=== PATIENT | female | born 1985 | race Caucasian/White ===

== ENCOUNTER 2024-05-12 09:39 | Outpatient (CLI) | payer MEDICAID, SELFPAY | END 2024-05-12 09:40 | disposition home or self-care (01) | LOC: NFLDREF 09:40 | PROVIDERS: Visit Provider Advanced Practice Midwife | DX: Z34.93 Encounter for supervision of normal pregnancy, unspecified, third trimester (principal); O09.523 Supervision of elderly multigravida, third trimester; Z3A.34 34 weeks gestation of pregnancy | CPT/HCPCS: 86787 ==

== ENCOUNTER 2024-05-26 12:41 | Outpatient (CLI) | payer MEDICAID, SELFPAY ==
[2024-05-27 15:35] LABS: Strep B DNA Probe Negative (Negative)
[2024-05-27 15:39] LABS: Strep B Susceptibility Needed? No
== END 2024-05-26 12:42 | disposition home or self-care (01) ==
LOC: NFLDREF 12:42
PROVIDERS: Visit Provider Advanced Practice Midwife
DX: Z34.93 Encounter for supervision of normal pregnancy, unspecified, third trimester (principal); O09.523 Supervision of elderly multigravida, third trimester; Z3A.36 36 weeks gestation of pregnancy
CPT/HCPCS: 87081; 87653

== ENCOUNTER 2024-06-01 08:18 | Outpatient (CLI) | payer MEDICAID, SELFPAY ==
[2024-06-01 08:36] VITALS: RESP 18; TEMP 36.7
[2024-06-01 08:41] VITALS: BP 101/64; PULSE 77
[2024-06-01] MEDS: TERBUTALINE 1 MG/ML INJ 0.25 MG SUBCUT (09:44)
--- NOTE | 2024-06-01 11:17 | PC.OBNST ---
NST Note NST Note Start: 06/01/24 08:39 Freq: ONCE Status: Active Protocol: Document 06/01/24 11:13 CUDDYH (Rec: 06/01/24 11:17 CUDDYH [id number]) NST Note 1 Para (# of births) 0 EDC 06/21/24 Gestational Age In Weeks & Days 37 Weeks & 1 Days Other Complaints Scheduled ECV Reactive Yes Appropriate for Gestational Age Yes RN Ricardo Rahman RN Date 06/01/24 Reactive Yes Appropriate for Gestational Age Yes OSVALDO Mcclellan RN Date 06/01/24 OB NST charge Yes Complete NST Note via Write Note Yes The provider's electronic signature indicates the NST is reactive/appropriate for gestational age. *Note to provider: If an addendum is required, open the patient's chart and click on the note under the Nurse/Allied Health tab.
--- NOTE | 2024-06-01 13:34 | PM.OBCN1 ---
OB - CN: HPI Date of Consult Date Seen: 06/01/24 Patient: [facility] Patient Consult date: 06/01/24 Requesting Physician: Freight Manager service Primary Care Provider: Not a Local Provider Consult Narrative Narrative: The patient is a 38 year old G 1 P 0 woman at 37 weeks, 1 day gestation who presents to Center today for attempted external cephalic version. She was found to have fetus in breech presentation at her last clinic visit. Overall, she has an otherwise uncomplicated . She is Rh positive. History History 1 Elective abortions Para 0 Spontaneous abortions Hx # Term Pregnancies Ectopic pregnancies Hx # Pregnancies Multiple births Number of Living Children 0 PFSH PFSH Family History Grandmother Heart disease Lung cancer Grandfather Diabetes Social History What is your current living situation?: I presently have a place to live Problems where you live: no known problems In the past 12 months, utilities in danger of being shut off: no In past 12 months, lack of transportation kept you from medical appts, meetings, work, or getting things needed for daily living: no In the past 12 mos, have been you worried that your food would run out before you had money to buy more?: never true In the past 12 mos, the food you bought just didn't last and you didn't have money to buy more?: never true Smoking Status: Never smoker How often does anyone, including family, friends and others, physically hurt you: never How often does anyone, including family, friends and others, insult or talk down to you: never How often does anyone, including family, friends and others, threaten you with harm: never How often does anyone, including family, friends and others, scream or curse at you: never Little interest or pleasure in doing things: not at all Feeling down, depressed, or hopeless: not at all Meds Home Medications and Allergies Home Medications ?Medication ?Instructions ?Recorded ?Confirmed ?Type docosahexaenoic acid 200 mg mg PO 04/28/24 05/26/24 History capsule ( DHA) Allergies Allergy/AdvReac Type Severity Reaction Status Date / Time No Known Drug Allergies Allergy Verified 05/26/24 08:29 OB - H&P: Exam Physical Exam: Vital signs: Temp Pulse Resp BP 98.1 F 77 18 101/64 06/01/24 08:36 06/01/24 08:41 06/01/24 08:36 06/01/24 08:41 Narrative: General: Pleasant, no acute distress Abdomen: Soft, nontender, gravid, breech presentation, confirmed on ultrasound. Bedside ultrasound performed: Fetus in michelle breech presentation OB - CN: A/P Assessment and Plan (1) Breech presentation: Status: Acute Plan Procedure note: External cephalic version We discussed risks of procedure, including discomfort, failure, rupture of membranes, disruption of placenta necessitating emergent delivery. Consent form reviewed with and signed by patient. Tianna was given a single dose of terbutaline 10 min prior to procedure. Her abdomen was coated in ultrasound gel. The infant's breech was elevated out of the pelvis, and we instituted a forward roll of the fetus on the 1st attempt. Ultrasound confirmed cephalic lie at end of procedure. Patient tolerated procedure well. Nonstress test before and after procedure was reactive and reassuring.
== END 2024-06-01 11:13 | disposition home or self-care (01) ==
LOC: OB CLI 08:21 → OB 08:22
PROVIDERS: Visit Provider Obstetrics & Gynecology
DX: O32.1XX0 Maternal care for breech presentation, not applicable or unspecified (principal); Z3A.37 37 weeks gestation of pregnancy
CPT/HCPCS: 59025; 59412; G0463; J3105

== ENCOUNTER 2024-06-17 13:00 | Inpatient (IN) | payer MEDICAID, SELFPAY ==
[2024-06-17] VITALS (43 sets, daily range): BP systolic 99–116; BP diastolic 52–73; PULSE 53–79; RESP 16; TEMP 36.4–37.2; O2SAT 16–100; BMI 25.0
[2024-06-17 11:01] LABS: Amnisure Rom* POSITIVE
--- NOTE | 2024-06-17 11:19 | P.LDBA_ITS ---
Subjective History of Present Illness Date Seen: 06/17/24 Narrative: Patient is being admitted to Labor and Delivery for []. She is a 38 year old at weeks gestation. Her full history and physical was dictated by [] on []. Please see this for details. [] Specific Issues/Plans G 1 P 0 Partner Amos Transfer of care from [facility] at 32 weeks # Breech at 36.2 weeks Successful external cephalic version 06/01/24 = 37 1/7 weeks # Advanced maternal age NIPT: low risk Daily baby aspirin Level 2 ultrasound completed # Rabies vaccine series completed during due to possible exposure to rabies. # Anemia recommended iron supplement at 34 weeks Tdap: 04/28 RSV: 04/28 Flu: 06/07/2024 Covid: 06/07/2024 Completed, not up-to-date. Recommended. Labs: Blood type O positive, antibody screen negative, hemoglobin 11.7, platelets 212, rubella 2.26 immune, TP PA nonreactive, hepatitis-B antigen negative, HIV negative, Chlamydia gonorrhea both negative, urine culture less than 10,000 mixed bacteria, hepatitis C negative, hemoglobin A1c 5.0 Varicella: IMMUNE, done at [facility], Pap:04/10/24: NILM NIPT: Low risk, male 1 hour glucose: 101 Ultrasound on 11/17/2023 shows intrauterine at 9 weeks 2 days. Level 2 anatomy scan on 02/17/2024 shows intrauterine 22 weeks 1 day. No anomalies evident. No markers for aneuploidy seen. biometry is consistent with gestational age. Amniotic fluid volume appears normal. Normal cervical length. No evidence of placenta previa. OB Result Labs Blood Type: O (+) positive Rubella: immune RPR/VDLR: nonreactive GBS Status: negative HBsAG: negative OB Exam Physical Exam Vital signs: Temp Pulse Resp BP Pulse Ox 97.5 F L 70 16 99/68 98 06/17/24 10:50 06/17/24 10:28 06/17/24 10:50 06/17/24 10:28 06/17/24 11:19 Narrative: Vitals Reviewed Constitutional:? Alert and oriented x3 HEENT:? Normocephalic, atraumatic Neck:? Supple Lungs:? Clear to auscultation bilaterally Heart:? Regular rate and rhythm, no murmur, rub or gallop Abdomen:? Soft, nontender, and gravid. Vertex by Jun's, confirmed with cervical exam. Extremities:? No edema or erythema Cervix: [] cm/[]%/[] station/[vertex] NST: [] bpm/[] variability/[]accelerations/[]decelerations/[]contractions
--- NOTE | 2024-06-17 11:54 | PM.OBLDTN ---
OB - Triage/Final Diagnosis Visit Information Date of evaluation: 06/17/24 Narrative: The patient is a 38 year old 1 para 0 at 39w3d weeks gestation by LMP confirmed by first tri US, who presents with leaking of fluid since yesterday morning. She has no fever or other complaints. She has had continued trickles of clear fluid. movement has been good. No contractions felt. No vaginal bleeding noted. Evaluation Laboratory results: Laboratory Tests 06/17/24 Range/Units 10:40 Membrane Rupture POSITIVE Vital signs: Vital Signs - 24 hr 06/17/24 10:28 06/17/24 10:29 06/17/24 10:34 Temperature Pulse Rate 70 Respiratory Rate Blood Pressure 99/68 Pulse Oximetry 98 99 06/17/24 10:39 06/17/24 10:44 06/17/24 10:49 Temperature Pulse Rate Respiratory Rate Blood Pressure Pulse Oximetry 98 98 97 06/17/24 10:50 06/17/24 10:54 06/17/24 10:59 Temperature 97.5 F L Pulse Rate Respiratory Rate 16 Blood Pressure Pulse Oximetry 97 97 06/17/24 11:04 06/17/24 11:09 06/17/24 11:14 Temperature Pulse Rate Respiratory Rate Blood Pressure Pulse Oximetry 98 97 97 06/17/24 11:19 06/17/24 11:24 06/17/24 11:29 Temperature Pulse Rate Respiratory Rate Blood Pressure Pulse Oximetry 98 100 100 06/17/24 11:34 06/17/24 11:39 06/17/24 11:44 Temperature Pulse Rate Respiratory Rate Blood Pressure Pulse Oximetry 99 99 99 06/17/24 11:49 06/17/24 11:54 Temperature Pulse Rate Respiratory Rate Blood Pressure Pulse Oximetry 99 97 Comments: Vitals Reviewed Constitutional:? Alert and oriented x3 HEENT:? Normocephalic, atraumatic Neck:? Supple Lungs:? Clear to auscultation bilaterally Heart:? Regular rate and rhythm, no murmur, rub or gallop Abdomen:? Soft, nontender, and gravid. Vertex by Jun's, confirmed with cervical exam. Extremities:? No edema or erythema Cervix: FT/90%/-3 station/vertex, Palpable fluid above cervix, vagina noted to be dry with no evidence of obvious amniotic fluid on the glove. NST: 118 bpm/moderate variability/accelerations present/decelerations absent/contractions present, palpating mild, pt not feeling them. Final Diagnosis (1) Advanced maternal age (AMA) in : Status: Acute (2) : Status: Acute Problem details: While amnisure is positive, false positive rate of 7-30% reviewed with patient since vaginal exam did not give any correlating info. Reviewed risk of infection and recommendation to induce labor since >24h since possible rupture, but also don't want to intervene if not ruptured. Reviewed option to repeat amnisure, do ferning test or go ahead with IOL assuming accurate test result since >39w. Pt elected to repeat amnisure and eat some lunch while waiting for the results. That way she can feel more reassured about the decisions she is making. H&P completed. Will update after amnisure is back.
[2024-06-17 12:44] LABS: Amnisure Rom* POSITIVE
--- NOTE | 2024-06-17 12:48 | W.PM.LDBA ---
Subjective History of Present Illness Date Seen: 06/17/24 Narrative: Patient is being admitted to Labor and Delivery for PROM at term. She is a 38 year old at weeks gestation. Her full history and physical was dictated by Joe SAHU today. see below. Specific Issues/Plans G 1 P 0 Partner Amos Transfer of care from [facility] at 32 weeks H&P completed by Joe SAHU GEOSPATIAL IMAGE ANALYST 06/17/2024 # Breech at 36.2 weeks Successful external cephalic version 06/01/24 = 37 1/7 weeks # Advanced maternal age NIPT: low risk Daily baby aspirin Level 2 ultrasound completed # Rabies vaccine series completed during due to possible exposure to rabies. # Anemia recommended iron supplement at 34 weeks Tdap: 04/28 RSV: 04/28 Flu: 06/07/2024 Covid: 06/07/2024 Completed, not up-to-date. Recommended. Labs: Blood type O positive, antibody screen negative, hemoglobin 11.7, platelets 212, rubella 2.26 immune, TP PA nonreactive, hepatitis-B antigen negative, HIV negative, Chlamydia gonorrhea both negative, urine culture less than 10,000 mixed bacteria, hepatitis C negative, hemoglobin A1c 5.0 Varicella: IMMUNE, done at [facility], Pap:04/10/24: NILM NIPT: Low risk, male 1 hour glucose: 101 Ultrasound on 11/17/2023 shows intrauterine at 9 weeks 2 days. Level 2 anatomy scan on 02/17/2024 shows intrauterine 22 weeks 1 day. No anomalies evident. No markers for aneuploidy seen. biometry is consistent with gestational age. Amniotic fluid volume appears normal. Normal cervical length. No evidence of placenta previa. OB - Problem Based A/P Additional Plan (1) Advanced maternal age (AMA) in : Status: Acute (2) : Problem details: While amnisure is positive, false positive rate of 7-30% reviewed with patient since vaginal exam did not give any correlating info. Reviewed risk of infection and recommendation to induce labor since >24h since possible rupture, but also don't want to intervene if not ruptured. Reviewed option to repeat amnisure, do ferning test or go ahead with IOL assuming accurate test result since >39w. Pt elected to repeat amnisure and eat some lunch while waiting for the results. That way she can feel more reassured about the decisions she is making. H&P completed. Status: Acute (3) PROM (premature rupture of membranes): Status: Acute Plan ASSESSMENT:?? 38 at 39 3/7 weeks gestation?? complicated by:?rabies with teratment in , anemia, AMA? Labor type: Induced labor??admit Category 1 FHR pattern.??? Labor complicated by: PROM at term?? GBS negative? ?? PLAN:?? 1. Routine intrapartum cares as ordered. 2. Monitoring per policy, continuous on pitocin, initiate pit per protocol 3. Planning unmedicated . May desire water . Consent signed. Hep C negative. Candidate for analgesia of choice.??? 4. Patient encouraged to reposition and ambulate to promote physiologic labor and .?? 5. Anticipate ? Delivery/Labor/Induction Plan Plan: induction Induction method: per pitocin protocol OB Result Labs Blood Type: O (+) positive Rubella: immune RPR/VDLR: nonreactive GBS Status: negative HBsAG: negative OB Exam Physical Exam Vital signs: Temp Pulse Resp BP Pulse Ox 97.5 F L 70 16 99/68 100 06/17/24 10:50 06/17/24 10:28 06/17/24 10:50 06/17/24 10:28 06/17/24 12:29 Narrative: See exam documented in triage note. Amnisure +x 2
[2024-06-17 15:55] LABS: Basophils Percent Auto 0.1 % (0.0-3.0); Eosinophils Percent Auto 0.4 % (0.0-7.0); Hematocrit 33.7 % (33.0-51.0); Hemoglobin* 11.3 gm/dL (12.0-16.0); Immature Granulocytes Pct Auto 0.6 %; Lymphocytes Percent Auto 14.4 % (20-44); Mean Corpuscular HGB Conc 34 gm/dL (32-36); Mean Corpuscular Hemoglobin 32 pg (26-34); Mean Corpuscular Volume 95 fL (80-100); Monocytes Percent Auto 6.1 % (0.0-11.0); Neutrophils Percent Auto 78.4 % (42.0-72.0); Platelet Count* 187 K/uL (140-440); RDW Coefficient of Variation % 12.7 % (11.5-15.5); Red Blood Count 3.54 m/uL (4.00-5.20); White Blood Count* 11.72 K/uL (4.50-11.00)
[2024-06-17 15:59] LABS: Slide Review Reflex No
[2024-06-17] MEDS: LACTATED RINGERS 1000 ML 1,000 ML 30 ML IV (16:03)
[2024-06-17] MEDS: OXYTOCIN 30 unit/500 ML in NS 30 UNIT/500 ML BAG IVPB (16:07)
[2024-06-18] VITALS (39 sets, daily range): BP systolic 92–118; BP diastolic 27–71; PULSE 50–85; RESP 16–20; TEMP 36.4–37; O2SAT 97–99
[2024-06-18] MEDS: miSOPROStoL 25 MCG/0.25 TABLET PO ×4 (00:13→06:33)
--- NOTE | 2024-06-18 11:00 | P.OBPN_ITS ---
Subjective Date Seen: 06/18/24 Narrative: Tianna received her 4th dose of oral Cytotec around 0630 this am. Since then she has continued to feel only cramping with some of the contractions that are tracing. She describes it as low in her abdomen and some in her back. She was able to sleep over night and feels well rested. She reported a large gush of clear fluid around 0100 this morning but has had only a scant amount since then. She does however endorse regular leaking of fluid since SROM. This morning we discussed options for how to proceed with her labor after SROM. We discussed expectant management but that was not recommended given her prolonged SROM. We discussed giving 1-2 additional doses of Cytotec but with her contraction tracing at that time it would be difficult given the risk for tachysystole. We also discussed beginning Pitocin titration. We would not be able to begin this until around 1030. I offered a SVE this morning to help make a decision and given her has not had one since admission. At that time she elected to wait until around [id number] since we would not be able to start Pitocin until that time. Around 1100 a SVE was performed and her cervix was 1cm/90%-2 and anterior. There was a bag of amniotic fluid easily palpated with this exam. She continues to contract Q2-3 minutes and feels them only about half of the time as cramping. Given this exam the decision was made to initiate Pitocin titration. Risks and benefits were discussed and questions were answered. A bedside US was preformed that confirmed vertex presentation. VSS. Objective Vital Signs: Last Vital Signs Temp 98.1 F 06/18/24 10:35 Pulse 63 06/18/24 10:57 Resp 16 06/18/24 10:35 BP 108/57 L 06/18/24 10:57 Pulse Ox 98 06/18/24 10:58 Pelvic Exam Dilation (cm): 1 Effacement (%): 90 Station: -2 Contractions Monitor mode: External Contraction Frequency: 2-3 Contraction pattern: Regular Contraction intensity: Mild Assessment Assessment: early labor Station: -2 Amniotic Membrane Status: SROM Status: Category l Heart Rate Baseline: 120 Intermediate Variability: Moderate (6-25) Monitor Accelerations: Present Monitor Decelerations: None Plan Plan: ASSESSMENT:?? 38 at 39 4/7 weeks gestation?? complicated by:?rabies with treatment in , anemia, AMA? Labor type: PROM with augmentation Category 1 FHR pattern.??? Labor complicated by: PROM >48 hours at term?? GBS negative? ?? PLAN:?? 1. Routine intrapartum cares as ordered. 2. Labor augmentation with Pitocin titration initiation. 3. Monitoring per policy, continuous on Pitocin. 4. Planning unmedicated . May desire water . Consent signed. Hep C negative. Candidate for analgesia of choice.??? 5. Patient encouraged to reposition and ambulate to promote physiologic labor and .?? 6. Anticipate ?
[2024-06-18] MEDS: OXYTOCIN 30 unit/500 ML in NS 30 UNIT/500 ML BAG IVPB ×2 (11:05→17:50)
[2024-06-18] MEDS: LACTATED RINGERS 1000 ML 1,000 ML 30 ML IV (11:05)
[2024-06-18] MEDS: LIDOCAINE 1 % PF 30 ML INJECTION (19:35)
[2024-06-18] MEDS: lidocaine HCL 2 % JELLY (TOP) STERILE 6 ML TOPICAL (19:35)
[2024-06-18] MEDS: IBUPROFEN 600 MG TABLET PO (20:15)
--- NOTE | 2024-06-18 20:32 | W.PM.VAGDE_ITS ---
OB Procedure Vag Delivery Mother Details Mother Details: The patient is a 38 year-old, 1, Para 0, admitted on 06/17/24 at 39.4 Days gestation. : 1 Para: 1 Weeks Gestation: 39.4 Admission Date: 06/17/24 Additional Details Amniotic Membrane Status: SROM Amniotic Membrane Rupture Date: 06/16/24 Amniotic Membrane Rupture Time: 05:00 Amniotic Membrane Fluid Description: Clear Analgesia/Anesthesia Type: None Waterbirth: Yes Pitcoin: Yes (augmentation and AMTSL) Intrapartal Events: Labor Augmentation, Distress and ROM >18 Hours Induction Method: per misoprostol protocol and per pitocin protocol Labor Onset: 14:30 Complete: 17:52 (presumed with spontaneous pushing ) Pushin:52 Heart: heart tones during second stage were category 2. Tracing was difficult due to maternal positioning. Decreases were heard to the 80-90 with good return to baseline and moderate variability for most of pushing. Prolonged deceleration was heard with to the 90's for about 3 minutes. was prolonged due partly to maternal effort and partially due to very tight maternal tissue impeding descent. Delivery Details Delivery Date: 06/18/24 Delivery Time: 19:03 Route of delivery: Gender: Male Infant Viability: Alive; Heart Rate Present Position at Delivery: OA Delivery Details: Patient was admitted for PROM. She presented greater than 24 hours after SROM at home. She was initially started on Pitocin but was switched to PO Cytotec after no progression on Pitocin. She received 4 doses before going back to Pitocin. She then progressed to complete about 6 hours after the Pitocin was started the second time. SROM noted at 0500 on 06/16/24 with a forebag spontaneously rupturing less than 2 hours before delivery with clear fluid throughout. She was ruptured for about 62 hours at time of delivery. Patient was presumed complete with spontaneous pushing at 1752. She had difficulty pushing initially stating that she she scared. After conversations and reassurance she began pushing effectively. of a viable male at 1903 on her back in the tub. She crowned for over 5 minutes due to very tight perineal tissue. The tissue was assisted to stretch with effort due to low heart rate. We did briefly discuss an episiotomy due to this tight tissue was it did give with assistance and then baby delivered easily. Vertex delivered OA. No nuchal cord or shoulder. Body d elivered easily and without incident. Infant passed to mothers abdomen with a vigorous cry. Cord was clamped and cut at > 5 minutes. APGARS were 7 at one minute and 8 at five minutes respectively. However after being brought to the warmer while mom was transferred to the bed baby did need some assistance with CPAP. He did eventually transition and was brought back to mom with close observation. Blood cultures were collected by the AIR QUALITY CHEMIST due to this and prolonged ROM. Mouth was bulb suctioned. Intact placenta with a 3 vessel cord delivered spontaneously at 1917. Fundus firm. 2nd degree identified and repaired in typical fashion. QBL 200mL and 50mL EBL in the tub. Mother and baby stable; mother plans to breastfeed. Infant weight pending.? 1 Minute Interval Total Score: 7 5 Minute Interval Total Score: 8 Additional Details Shoulder Dystocia: No Placenta Delivery Time: 19:17 Placental Delivery Description: Spontaneous Delivery repair: Vicryl Procedure Done: Global Blood Loss: 250 Laceration: Perineal - 2nd Degree Episiotomy Description: None Blood Loss Measurement Type: QBL Bakri Used: No Sponge/Need Count Correct: Yes Cord Vessel Description: 3 Vessels (short, hyper coiled cord) Event Summary Status: Mother and infant were stable after delivery. Disposition: floor
[2024-06-19 01:30] VITALS: BP 101/65; PULSE 75; RESP 12; TEMP 36.8; O2SAT 97
[2024-06-19] MEDS: IBUPROFEN 600 MG TABLET PO ×3 (01:30→21:01)
[2024-06-19 04:51] VITALS: BP 97/63; PULSE 79; RESP 12; TEMP 36.8; O2SAT 97
[2024-06-19 06:46] LABS: Hemoglobin* 9.9 gm/dL (12.0-16.0)
--- NOTE | 2024-06-19 08:46 | PM.OBPNVD1 ---
OB - PN:Subj Subjective Date Seen: 06/19/24 Narrative: Tianna is a 38 y.o. G 1 P 1 who was admitted to L & D for PROM. ?She had a NVD that was uncomplicated. The patient feels well. ?The pain is well controlled with current medications. ?She has no new complaints. ?She is breast feeding and reports things are going well. the patient has done well.? Vitals have been stable.? She has remained afebrile.? Has a good appetite, is tolerating a general diet. ?She is voiding without difficulty.? She is passing gas and has not had a bowel movement.? She is ambulating and denies any dizziness.? Has small amount of rubra lochia. Problems: Anemia OB - PN: Obj Exam Physical Exam: Vital signs: Temp Pulse Resp BP Pulse Ox O2 Del Method 98.3 F 79 12 97/63 97 Room Air 06/19/24 04:51 06/19/24 04:51 06/19/24 04:51 06/19/24 04:51 06/19/24 04:51 06/19/24 04:51 Narrative: GENERAL APPEARANCE:? normal affect, alert, no distress MOOD:? appropriate CHEST:? clear to auscultation HEART:? regular rate and rhythm ABDOMEN:? soft, non-tender the uterine fundus is At Umbilicus, Midline and is appropriate for the stage of recovery. PERINEUM:? mild edema of the perineum, there is a Perineal Laceration,?2nd degree, that is healing well. EXTREMITIES:? normal and no edema OB - PN: Obj Data Labs Labs: Laboratory Results - last 24 hr 06/19/24 06:20 Hgb 9.9 L OB - PN: A/P Delivery Assessment and Plan (1) care and examination immediately after delivery: Status: Acute (2) Lactating mother: Status: Acute (3) Anemia due to acute blood loss: Status: Acute Plan day: 1 Plan: routine care Comments: plan: Anticipate discharge tomorrow. , may see if needed Hgb 9.9. Iron supplement ordered orally every other day
[2024-06-19] MEDS: DOCUSATE SODIUM 100 MG CAPSULE PO (09:54)
[2024-06-19] MEDS: FERROUS SULFATE 325 MG TABLET PO (09:54)
[2024-06-19 09:56] VITALS: BP 104/73; PULSE 84; RESP 18; O2SAT 100
[2024-06-19 13:05] VITALS: BP 86/54; PULSE 73; RESP 16; O2SAT 98
[2024-06-19 16:25] VITALS: BP 114/75; PULSE 87; RESP 16; TEMP 36.5
[2024-06-19 23:18] VITALS: BP 101/68; PULSE 80; RESP 16; TEMP 36.5; O2SAT 98
[2024-06-20 02:28] LABS: Rapid Plasma Reagin (RPR) Non Reactive (Non Reactive)
[2024-06-20] MEDS: IBUPROFEN 600 MG TABLET PO (06:41)
[2024-06-20 08:55] VITALS: BP 97/68; PULSE 93; RESP 18; O2SAT 99
[2024-06-20] MEDS: DOCUSATE SODIUM 100 MG CAPSULE PO (08:57)
--- NOTE | 2024-06-20 09:07 | PM.OBDSVD1 ---
DS: Providers Provider Date Seen: 06/20/24 Date of admission: 06/17/24 13:00 Primary care physician: Not a Local Provider Admitting Clinician: Saskia Golver CNM Attending Physician on discharge: Kim Treviño CNM DS: Diagnosis Discharge Diagnosis (1) care and examination immediately after delivery: Status: Acute (2) Anemia due to acute blood loss: Status: Acute (3) Lactating mother: Status: Acute Exam Narrative: Exam Narrative: GENERAL APPEARANCE:? normal affect, alert, no distress MOOD:? appropriate CHEST:? clear to auscultation HEART:? regular rate and rhythm ABDOMEN:? soft, non-tender the uterine fundus is At Umbilicus, Midline and is appropriate for the stage of recovery. PERINEUM:? mild edema of the perineum, there is a Perineal Laceration,?2nd degree, that is healing well. EXTREMITIES:? normal and no edema Const: Vital Signs, click to edit/add: Vital Signs - 24 hr 06/19/24 09:56 06/19/24 13:05 06/19/24 16:25 Temperature 97.7 F Pulse Rate [Pulse Oximeter] 84 73 87 Respiratory Rate 18 16 16 Blood Pressure [Le ft Arm] 104/73 86/54 L 114/75 Pulse Oximetry 100 98 Oxygen Delivery Me thod Room Air Room Air 06/19/24 23:18 06/20/24 08:55 Temperature 97.7 F Pulse Rate [Pulse Oximeter] 80 93 Respiratory Rate 16 18 Blood Pressure [Le ft Arm] 101/68 97/68 Pulse Oximetry 98 99 Oxygen Delivery Me thod Room Air Room Air Documenting provider has reviewed patient's vital signs: yes OB - DS: Summary Hospital Course Hospital Course: Tianna is a 38 y.o. G 1 P 1 who was admitted to [facility]OM. ?She had a NVD that was complicated by prolonged ROM. The patient feels well. ?The pain is well controlled with current medications. ?She has no new complaints. ?She is breast feeding and reports things are going well. the patient has done well.? Vitals have been stable.? She has remained afebrile.? Has a good appetite, is tolerating a general diet. ?She is voiding without difficulty.? She is passing gas and has not had a bowel movement.? She is ambulating and denies any dizziness.? Has small amount of rubra lochia. She is planning IUD for prevention. Problems: Anemia plan: Discharge home with baby. Follow up in 2 weeks and 6 weeks. , may see if needed Hgb 9.9. Iron supplement ordered orally every other day Peripartum Data Infant delivery method: Vaginal Laceration description: Perineal - 2nd Degree complications: none Gender: Male Discharge Plan: Home Status at Discharge Functional status at discharge: independent ambulation Overall status at discharge: patient is progressing back to baseline Time Spent with Patient Time attestation: Total time spent providing and/or coordinating discharge services: Time spent: Less than 30 minutes Discharge Plan Discharge Disposition: Home, Self-Care Date of Admission: 06/17/24 13:00 Attending Provider on Discharge: Kim Treviño Primary Care Provider: Provider,Not a Local Discharge Medications: New ferrous sulfate 325 mg (65 mg iron) Tablet 325 mg PO Q OTHER DAY Qty: 60 0RF docusate sodium 100 mg Capsule 100 mg PO DAILY Qty: 90 0RF ibuprofen 600 mg Tablet 600 mg PO Q6H PRNQty: 60 0RF acetaminophen 500 mg Tablet 1,000 mg PO Q6H PRNQty: 0 0RF Continued DHA 200 mg capsule 200 mg PO DAILY Discontinued aspirin [Adult Aspirin Regimen] 81 mg tablet,delayed release (DR/EC) 81 mg PO QDAY Qty: 30 0RF Discharge Orders: Discharge Order (Routine); Ordered 06/20/24 Ordered By: Kim Treviño Patient Education: OB Over the Counter Medication Information, OB Vaginal/Breast Feeding Additional Instructions: Discharge instructions were reviewed with the patient including signs and symptoms of infection and home going medications Nothing vaginally for 6 weeks: no tampons or intercourse Off Work or School for 6 weeks 2-week visit: discuss infant feeding concerns, review control options and screen for anxiety/depression. 6-week visit for an annual exam. consultation services are available to all mothers and babies for the first year after delivery.? To make an appointment, please call [phone]. Activity Level: Activity as Tolerated Discharge Diet: Regular Follow Up Appointments: [facility] [Provider Group] Forms: Net[employer] Info Instructions
== END 2024-06-20 12:45 | disposition home or self-care (01) | DRG 806 ==
LOC: OB OUT 13:01 → OB 13:01
PROVIDERS: Advanced Practice Midwife; Admitting Provider Midwife; Visit Provider Advanced Practice Midwife
DX: O42.12 Full-term premature rupture of membranes, onset of labor more than 24 hours following rupture (principal); D62 Acute posthemorrhagic anemia; Z37.0 Single live birth; O70.1 Second degree perineal laceration during delivery; O99.02 Anemia complicating childbirth; D64.9 Anemia, unspecified; Z3A.39 39 weeks gestation of pregnancy
CPT/HCPCS: 36415; 59200; 84112; 85018; 85025; 86592; 86850; 86900; 86901; 88307; A9270; J2003; J7120

== ENCOUNTER 2024-06-23 08:35 | Outpatient (CLI) | payer MEDICAID, SELFPAY ==
--- NOTE | 2024-06-23 15:59 | W.PM.LAC.MC ---
Consult Note - Mom Date of Visit Date of visit: 06/23/24 Reason for consultation: Assistance Needed Visit Code: Visit Patient's Information Phone number: [phone] : 1 Para: 1 Allergies No Known Drug Allergies Allergy (Verified 06/14/24 13:53) Mother's Medical History: Medical History (Updated 06/22/24 @ 00:01 by Background Daemon) Seasonal allergies ?J30.2 - Other seasonal allergic rhinitis (ICD-10) History of migraine with aura ?Z86.69 - Personal history of other diseases of the nervous system and sense organs (ICD-10) Delivery Information Delivery type: Vaginal Gestational Age: 39+4 Gestational Weight For Age: AGA Weight: 3.29 kg Discharge Weight: 3.118 kg Percentage weight loss: 5.3 Baby's Information Baby's Age at Visit: 5 days Baby's Provider or Clinic: [facility] Jaundice: No Past Experience Past Experience: No Current Frequency of Day Feedings: every 2.5-3 hours Frequency of Night Feedings: every 3 hours Both Breasts: Yes Suck: pretty strong Latch: comfortable per mom, sore for the first 10-15 sec Length of Time: 10-15 min ea side Pumping Pumping: No Supplementing EBM Supplement: No Formula Supplement: No Baby Elimination Number of Wet Diapers a Day: 3-4 Number of BM a Day: 5 or 6 yesterday, yellow in color Breast/Nipple Condition Breast Information: Breasts are symmetrical with rounded lower quadrants, intramammary distance is less than 1.5 inches. No erythema. Nipples are supple, everted prior to feeding. Breast Shape: Round and Firm (softens after a feeding) Engorgement: No Maternal Nipple Condition - Left: Common Nipple Maternal Nipple Condition - Right: Common Nipple Sore Nipples: Yes (slight) Interventions for Sore Nipples: Other (Silverettes) Baby Assessment Skin: Normal Tongue/frenulum: Normal/elastic Palate: Average Lips: Relaxed and Symmetrical Jaw Alignment: Symmetrical Mucosa: Wineglass, moist Onsite Observation Pre-Feed weight: 3.026 kg (up 26 gms from clinic visit yesterday; an 8.1% weight loss from now) Post-Feed weight: 3.074 kg Milk Transferred (mL): 48 Position: Cross cradle and Football Attachment/latch-on achieved: Easily Suck pattern: Suck burst and normal rest Swallow: Audible, consistent Behavior following feed: Relaxed, sleepy Pre-Nursing Left Nipple: Within Normal Limits Pre-Nursing Right Nipple: Within Normal Limits Post-Nursing Left Nipple: Within Normal Limits Post-Nursing Right Nipple: Within Normal Limits Assessments/Interventions Assessments/Interventions: observation: Mom easily latched baby on right breast; was a little shallow at first. Showed mom how to position her breast, make a breast sandwich and quickly bring baby to breast and achieve a deeper, more comfortable latch. Mom reports feels better than usual. Audible swallows present. Jesus nursed 12 min on RIGHT side and transferred 26ml; then nursed 10 on LEFT breast and transferred 22 ml. Came off and was relaxed and content. Showed mom breast compression technique she can do near the end of the feeding if she wants to increase volume to baby. Education provided: Early feeding cues to maximize timing of latching, Asymmetric latch technique for wide/deep latch to increase milk, Transfer for baby and increase comfort for mom, Supply/demand nature of milk supply and Need for frequent stimulation/milk removal Feeding Plan: Continue current feeding every 2-3 hours Offer both breasts ea feeding, 10-15 minutes ea side. Breast compression technique to increase volume to baby Discussed weight gain of 26gm from yesterday is good, but given baby still at a 8.1% weight loss, would recommend a f/u appt for weight check sooner than 2 week check up. No need to pump yet; discussed role of pumping after supply is established if would like to get some milk frozen, but currently baby is doing well transferring milk so no medical need to supplement. Follow-Up Suggested follow up: Appointment in 1-3 days (for weight check given still >8% weight loss. Offered family option of visiting [facility] in [place]; parents prefer visit for more detailed time if needed) Time Spent Time spent with patient (min): 90 (reviewing EMR and face to face with mom, and baby) Meds Home Medications and Allergies Home Medications ?Medication ?Instructions ?Recorded ?Confirmed ?Type docosahexaenoic acid 200 mg 200 mg PO DAILY 04/28/24 06/17/24 History capsule ( DHA) Allergies Allergy/AdvReac Type Severity Reaction Status Date / Time No Known Drug Allergies Allergy Verified 06/14/24 13:53
== END 2024-06-23 08:36 | disposition home or self-care (01) ==
LOC: OB LAC 08:36
PROVIDERS: Visit Provider Obstetrics & Gynecology
DX: Z39.1 Encounter for care and examination of lactating mother (principal)
CPT/HCPCS: G0463

== ENCOUNTER 2024-06-28 15:53 | Outpatient (CLI) | payer MEDICAID, SELFPAY ==
--- NOTE | 2024-06-28 17:06 | W.PM.LAC.MF ---
Follow-Up Note: Mom Date of visit Date of visit: 06/28/24 Reason for consultation: Assistance Needed and Weight Concern (baby was at 8.1% weight loss on 06/23, rechecking latch, milk transfer and supply) Visit Code: Visit Patient's Information Allergies No Known Drug Allergies Allergy (Verified 06/14/24 13:53) Delivery Information Weight: 3.29 kg Last Weight: 3.026 kg Baby's Information Baby's name: Yinka Gutierrez Baby's Age at Visit: 10 days Baby's Provider or Clinic: [facility] Current Frequency of Day Feedings: every 1.5-2.5 hours Frequency of Night Feedings: every 3 hours, needing to wake him for feedings Both Breasts: Yes Suck: strong Latch: wide and deep mostly, occas pinchy on the left side Length of Time: 15-20 min both breasts most feeds Pumping Pumping: No Supplementing EBM Supplement: No Formula Supplement: No Baby Elimination Number of Wet Diapers a Day: ea feeding Number of BM a Day: 5-6, sometimes more Breast/Nipple Assessment Breast/Nipple Assessment: Breasts are symmetrical with rounded lower quadrants, intramammary distance is less than 1.5 inches. No erythema. Nipples are supple, everted prior to feeding. Breast Shape: Round Engorgement: No Maternal Nipple Condition - Left: Common Nipple and Other (slight irritation noted, not broken open) Maternal Nipple Condition - Right: Common Nipple Sore Nipples: Yes Interventions for Sore Nipples: Other (silverettes) Onsite Observation Pre-feed weight: 3.218 kg (up average of 38gm/day since 06/23/24) Post-Feed weight: 3.274 kg Milk Transferred (mL): 56 Pre-Nursing Left Nipple: Within Normal Limits and Redness Pre-Nursing Right Nipple: Within Normal Limits Post-Nursing Left Nipple: Within Normal Limits and Redness (not as pinched as usual per mom) Post-Nursing Right Nipple: Within Normal Limits Assessments/Interventions Assessments/Interventions: Worked on positioning for a more comfortable latch and bringing baby to the breast vs. going to baby to help with deeper latch Discussed continuuing feeding every 3 hours at night until back to birthweight ( probably within the next few days), then can go a bit longer IF mom is comfortable with that. Discussed pros and cons for milk supply and keeping her comfortable through the night. Nipples measured for flange size; RIGHT and LEFT both 17mm, so with Zomee pump recommend the 21mm flange; if it's too large, may need to get a smaller one for comfort. Education provided: Early feeding cues to maximize timing of latching, Asymmetric latch technique for wide/deep latch to increase milk (reviewed with mom for deeper latch), Transfer for baby and increase comfort for mom, Sore nipple treatment options and Other (discussed pumping when she is ready to start, and adding bottles at 3-4 weeks of age) Follow-Up Suggested follow up: Appointment as needed Recommend baby be seen by provider for:: Encouraged f/u at [facility] Time Spent Time spent with patient (min): 70 (Reviewing EMR and face to face with patient, and baby) Meds Home Medications and Allergies Home Medications ?Medication ?Instructions ?Recorded ?Confirmed ?Type docosahexaenoic acid 200 mg 200 mg PO DAILY 04/28/24 06/17/24 History capsule ( DHA) Allergies Allergy/AdvReac Type Severity Reaction Status Date / Time No Known Drug Allergies Allergy Verified 06/14/24 13:53
== END 2024-06-28 15:54 | disposition home or self-care (01) ==
PROVIDERS: Visit Provider Obstetrics & Gynecology
DX: Z39.1 Encounter for care and examination of lactating mother (principal)
CPT/HCPCS: G0463

== ENCOUNTER 2024-07-21 12:17 | Outpatient (CLI) | payer MEDICAID, SELFPAY ==
--- NOTE | 2024-07-21 15:20 | W.PM.LAC.MF ---
Follow-Up Note: Mom Date of visit Date of visit: 07/21/24 Reason for consultation: Assistance Needed and Breast/Nipple Issue (sore nipples again for 1.5 weeks) Visit Code: Visit Patient's Information Allergies No Known Drug Allergies Allergy (Verified 07/14/24 14:17) Delivery Information Last Weight: 3.66 kg (in clinic on 07/09) Baby's Information Baby's name: Yinka Gutierrez Baby's Age at Visit: 33 days Baby's Provider or Clinic: [facility] Current Frequency of Day Feedings: about every 3 hours day and night Both Breasts: Yes Suck: strong Latch: not sure, nipples are pointy when he comes off Length of Time: 15-20 minutes, will go as long as 50 min on 1 breast if she lets him Pumping Pumping: Yes Quantity Pumped: about 1 oz ea side after feeding Supplementing EBM Supplement: No Formula Supplement: No Baby Elimination Number of Wet Diapers a Day: ea feeding Number of BM a Day: 6 or more/day Breast/Nipple Assessment Breast/Nipple Assessment: Breasts are symmetrical with rounded lower quadrants, intramammary distance is less than 1.5 inches. No erythema. Nipples are supple, everted prior to feeding. Both nipples are creased even before baby nurses. Slightly increased pink, no cracks or blisters. Breast Shape: Round Engorgement: No Maternal Nipple Condition - Left: Common Nipple Maternal Nipple Condition - Right: Common Nipple Sore Nipples: Yes Interventions for Sore Nipples: Lansinoh/Nipple Cream and Other (had been using silverettes, has stopped for at least 1 week now) Onsite Observation Pre-feed weight: 4.014 kg (up 354 grams in 12 days; average 29.5 gms/day) Pre-Nursing Left Nipple: Creased/Beveled Pre-Nursing Right Nipple: Creased/Beveled Post-Nursing Left Nipple: Creased/Beveled (creased less than before nursing as latch/position was altered) Post-Nursing Right Nipple: Creased/Beveled Assessments/Interventions Assessments/Interventions: Worked with mom to review asymmetrical latch technique for a deeper latch and mom reports increased comfort immediately with this. Needing to wait for baby to open wide to get more breast tissue in his mouth before he clamps down. Suck assessment shows a very strong suck so if mom isn't in his mouth enough when he clamps down she is unlikely to get him on more deeply; need to get it from the start. If the latch isn't comfortable, recommend mom take him off and relatch rather than suffer through a less than ideal latch as this is adding to her nipple soreness. Nipple care reviewed as well. Trial of hydrocortisone 4 times a day to decrease irritation. Nipple cream for moisturizer Breast shells to decrease irritation from bra. If no improvement, can try clotrimazole (for thrush) 6-8 times a day for 14 days. Given improvement in nipple pain with deeper latch, less likely to think it's thrush, but back up plan if pain does not continue to resolve with improved latch given new onset after period of nipples not hurting. Treat for 2 weeks minimum PLUS 1 week of no symptoms Call/return to office if not improving or if worsening Education provided: Early feeding cues to maximize timing of latching, Asymmetric latch technique for wide/deep latch to increase milk, Transfer for baby and increase comfort for mom, Sore nipple treatment options (discussed breast shells may help decrease irritation and allow nipples to heal) and Other Follow-Up Suggested follow up: Appointment as needed Time Spent Time spent with patient (min): 60 Meds Home Medications and Allergies Home Medications ?Medication ?Instructions ?Recorded ?Confirmed ?Type docosahexaenoic acid 200 mg 200 mg PO DAILY 04/28/24 07/14/24 History capsule ( DHA) docusate sodium 100 mg capsule 100 mg PO .every other day PRN 07/14/24 History Allergies Allergy/AdvReac Type Severity Reaction Status Date / Time No Known Drug Allergies Allergy Verified 07/14/24 14:17
== END 2024-07-21 12:18 | disposition home or self-care (01) ==
LOC: OB LAC 12:18
PROVIDERS: Visit Provider Obstetrics & Gynecology
DX: Z39.1 Encounter for care and examination of lactating mother (principal)
CPT/HCPCS: G0463

== ENCOUNTER 2025-04-22 08:56 | Outpatient (CLI) | payer MEDICAID, SELFPAY | END 2025-04-22 08:57 | disposition home or self-care (01) | PROVIDERS: PCP Family Medicine; Visit Provider Family Medicine | DX: D50.9 Iron deficiency anemia, unspecified (principal); R53.83 Other fatigue; Z13.6 Encounter for screening for cardiovascular disorders; D22.9 Melanocytic nevi, unspecified | CPT/HCPCS: 80053; 80061; 82607; 82728 ==

== ENCOUNTER 2025-05-24 14:45 | Outpatient (CLI) | payer MEDICAID, SELFPAY ==
[2025-05-26 14:33] LABS: HPV Source Cervical
[2025-05-30 08:06] LABS: Pap Test Digital Imaging Done
== END 2025-05-24 14:46 | disposition home or self-care (01) ==
PROVIDERS: PCP Family Medicine; Visit Provider Advanced Practice Midwife
DX: Z12.4 Encounter for screening for malignant neoplasm of cervix (principal)
CPT/HCPCS: 87624; 87625; 88141; 88142; 88175